=== PATIENT | female | born 1965 | race Caucasian/White ===

== ENCOUNTER 2021-04-25 09:30 | Outpatient (RCR) | payer BC, SELFPAY ==
[2021-03-11 12:59] VITALS: BMI 64.2
== END 2021-05-05 14:49 | disposition home or self-care (01) ==
LOC: ANHDMC 09:30
PROVIDERS: Visit Provider Registered Nurse
DX: E11.42 Type 2 diabetes mellitus with diabetic polyneuropathy (principal); Z71.89 Other specified counseling; Z71.3 Dietary counseling and surveillance
CPT/HCPCS: 97802; 99199; G0108; G0109

== ENCOUNTER 2021-07-01 13:58 | Outpatient (RCR) | payer BC, SELFPAY | END 2021-07-05 13:13 | disposition home or self-care (01) | LOC: ANHDMC 13:58 | PROVIDERS: PCP Registered Nurse; Visit Provider Registered Nurse | DX: E11.42 Type 2 diabetes mellitus with diabetic polyneuropathy (principal); Z71.89 Other specified counseling | CPT/HCPCS: G0108 ==